=== PATIENT | female | born 1970 | race Caucasian/White ===

== ENCOUNTER 2016-10-21 10:09 | Emergency (ER) | payer MEDICARE, OTHER ==
[2016-10-21 10:16] VITALS: RESP 18; TEMP 97.8; O2SAT 100
[2016-10-21] MEDS ORDERED: Alum-Mag Hydrox-Simethicone Susp (30 mL) PO STA (10:37)
--- NOTE | 2016-10-21 10:41 | C.PDOC ---
History Of Present Illness 10/21/2016 10:30 Celi Olivera is a 46 y/o female whose past medical history includes gastritis, presents to the ED complaining of abdominal discomfort since one day ago. Patient reports she feels a burning sensation and has intolerance to food, which are similar symptoms she experienced with her gastritis. Patient notes being compliant with her medication, but there has been no significant relief. Patient denies chest pain, shortness of breath, headache, fever, chills, cough, nausea, vomiting, diarrhea, changes in bowel habits, dysuria, hematuria, frequency, or other complaints. Time Seen by Provider: 10/21/16 10:20 Chief Complaint (Nursing): Abdominal Pain History Per: Patient History/Exam Limitations: no limitations Onset/Duration Of Symptoms: Days (1 day) Current Symptoms Are (Timing): Still Present Location Of Pain/Discomfort: Diffuse Radiation Of Pain To:: None Quality Of Discomfort: Burning Associated Symptoms: Other (food intolerance). denies: Fever, Vomiting Exacerbating Factors: Food Alleviating Factors: None Abnormal Vaginal Bleeding: No Past Medical History Reviewed: Historical Data, Nursing Documentation, Vital Signs Vital Signs: Last Vital Signs Temp 97.8 F 10/21/16 10:15 Pulse 100 H 10/21/16 10:15 Resp 18 10/21/16 10:15 BP 122/86 10/21/16 10:15 Pulse Ox 100 10/21/16 10:53 - Medical History PMH: Gastritis Surgical History: Family History: States: No Known Family Hx - Social History Hx Tobacco Use: No Hx Alcohol Use: Yes Hx Substance Use: No - Immunization History Hx Tetanus Toxoid Vaccination: No Hx Influenza Vaccination: No Hx Pneumococcal Vaccination: No Review Of Systems Constitutional: Negative for: Fever Cardiovascular: Negative for: Chest Pain Respiratory: Negative for: Shortness of Breath Gastrointestinal: Positive for: Abdominal Pain. Negative for: Vomiting, Diarrhea Genitourinary: Negative for: Dysuria, Frequency Neurological: Negative for: Headache Physical Exam - Physical Exam Additional Physical Exam Comments: Constitutional: No acute distress. Head: Normocephalic. Atraumatic. Eyes: PERRL. ENT: Moist mucous membranes. Neck: Supple. Cardiovascular: Regular rate. Radial pulses 2+ bilaterally. Chest: No tenderness. Respiratory: Clear to auscultation bilaterally. GI: Soft. Nontender. Nondistended. Back: No CVA tenderness. Musculoskeletal: No tenderness or swelling of extremities. Left arm deformity, (baseline). Skin: No rash. Neurologic: Alert, no focal deficit. ED Course And Treatment O2 Sat by Pulse Oximetry: 100 (room air) Pulse Ox Interpretation: Normal Medical Decision Making Medical Decision Makin10/21/2016 Impression: 46 with abdominal pain, similar symptoms to gastritis pmh. Plan: -- Pepcid, Zofran, and Maalox -- Reassess and disposition Patient states she feels much better after treatment. Will discharge, instructed to return to the ED for worsening pain, fever, or change in pain. Disposition - Disposition Disposition: HOME/ ROUTINE Disposition Time: 12:00 Condition: STABLE Prescriptions: Famotidine/Ca Carb/Mag Hydrox [Pepcid Complete Tablet Chew] 1 each PO BID #28 tab.chew Ondansetron ODT [Zofran ODT] 4 mg PO Q8 #12 odt Instructions: Gastritis (ED) Forms: [employer] (Georgian) - Clinical Impression Clinical Impression: Epigastric abdominal pain - Scribe Statement The provider has reviewed the documentation as recorded by the Scribe 10/21/2016 Scribe Attestation: Hetal Pereyra MD Scribe Attestation: All medical record entries made by the Scribe were at my direction and personally dictated by me. I have reviewed the chart and agree that the record accurately reflects my personal performance of the history, physical exam, medical decision making, and the department course for this patient. I have also personally directed, reviewed, and agree with the discharge instructions and disposition.
[2016-10-21] MEDS ORDERED: Alum-Mag Hydrox-Simethicone Susp (30 mL) ONE (10:42)
[2016-10-21 12:02] VITALS: BP 124/72; PULSE 89
== END 2016-10-21 12:03 | disposition home or self-care (01) ==
LOC: C.ER 10:09
DX: R10.13 Epigastric pain (principal)

== ENCOUNTER 2018-02-14 09:53 | Emergency (ER) | payer MEDICARE ==
[2018-02-14 09:57] VITALS: BMI 16.5
[2018-02-14 10:01] VITALS: RESP 18; O2SAT 99
--- NOTE | 2018-02-14 10:59 | C.PDOC ---
History Of Present Illness 47 y/o female presents to the ED complaining of lower back pain for 2 weeks. Pain is mainly localized to the left side. Patient also reports some left-sided pelvic pain. Pain worsens with movement. She denies any abdominal pain, flank pain, vaginal bleeding, vaginal discharge, or urinary complaints. She reports taking Advil for pain. Also denies recent fall or trauma. Time Seen by Provider: 02/14/18 10:13 Chief Complaint (Nursing): Back Pain History Per: Patient History/Exam Limitations: no limitations Onset/Duration Of Symptoms: Days Current Symptoms Are (Timing): Still Present Past Medical History Reviewed: Historical Data, Nursing Documentation, Vital Signs Vital Signs: Last Vital Signs Temp 97.7 F 02/14/18 09:57 Pulse 88 02/14/18 09:57 Resp 18 02/14/18 09:57 BP 127/82 02/14/18 09:57 Pulse Ox 99 02/14/18 09:57 - Medical History PMH: Gastritis, Osteoporosis Surgical History: Family History: States: No Known Family Hx - Social History Hx Tobacco Use: No Hx Alcohol Use: Yes Hx Substance Use: No - Immunization History Hx Tetanus Toxoid Vaccination: No Hx Influenza Vaccination: No Hx Pneumococcal Vaccination: No Review Of Systems Except As Marked, All Systems Reviewed And Found Negative. Constitutional: Negative for: Fever, Chills Gastrointestinal: Negative for: Nausea, Vomiting Genitourinary: Positive for: Pelvic Pain. Negative for: Dysuria, Frequency, Incontinence, Vaginal Discharge, Vaginal Bleeding Musculoskeletal: Positive for: Back Pain Skin: Negative for: Rash Physical Exam - Physical Exam Appears: Non-toxic, No Acute Distress Skin: Normal Color, Warm, Dry Head: Atraumatic, Normacephalic Eye(s): bilateral: Normal Inspection, PERRL, EOMI Oral Mucosa: Moist Neck: Normal ROM Chest: Symmetrical Cardiovascular: Rhythm Regular, No Murmur Respiratory: Normal Breath Sounds, No Accessory Muscle Use Gastrointestinal/Abdominal: Soft, No Tenderness, No Distention Back: No Vertebral Tenderness, Paraspinal Tenderness (Left paralumbar tenderness), No Straight Leg Raising, Other (Pain with flexion; No gross swelling) Extremity: Normal ROM, No Tenderness, Deformity (Left arm partial amputation), No Swelling Pulses: Left Dorsalis Pedis: Normal, Right Dorsalis Pedis: Normal Neurological/Psych: Oriented x3, Normal Speech Gait: Steady ED Course And Treatment O2 Sat by Pulse Oximetry: 99 (RA) Pulse Ox Interpretation: Normal Medical Decision Making Medical Decision Making: Impression: Back pain Plan: --Urinalysis --Urine POC --LS spine x-ray --Pelvic x-ray --Flexeril 5 mg PO --Tylenol 975 mg PO Disposition Counseled Patient/Family Regarding: Studies Performed, Diagnosis, Need For Followup, Rx Given - Disposition Referrals: Alphonse Amaarl MD [Staff Provider] - Disposition: HOME/ ROUTINE Disposition Time: 12:29 Condition: STABLE Additional Instructions: follow up with your doctor within 2 days call to make an appointment take medications as prescribed return to ER if symptoms worsens or progress Prescriptions: Cyclobenzaprine [Cyclobenzaprine HCl] 10 mg PO TID PRN #12 tab PRN Reason: Muscle Spasm Lidocaine 5% [Lidoderm] 1 ea TD DAILY PRN #10 patch PRN Reason: Pain, Moderate (4-7) Naproxen [Naprosyn] 500 mg PO BID PRN #16 tab PRN Reason: Pain, Moderate (4-7) Sulfamethoxazole/Trimethoprim [Bactrim DS 800 mg-160 mg] 1 tab PO BID #14 tab Instructions: Low Back Pain (DC), Urinary Tract Infection, Adult (DC) Forms: [facility] (Al[place]ian), General Discharge Instructions, Work Excuse - Clinical Impression Clinical Impression: Low back pain, UTI (urinary tract infection) - Scribe Statement The provider has reviewed the documentation as recorded by the Andrzej Kay Provider Attestation: All medical record entries made by the Andrzej were at my direction and personally dictated by me. I have reviewed the chart and agree that the record accurately reflects my personal performance of the history, physical exam, medical decision making, and the department course for this patient. I have also personally directed, reviewed, and agree with the discharge instructions and disposition.
--- NOTE | 2018-02-14 11:28 | RAD ---
Date of service: 02/14/2018 PROCEDURE: Radiographs of the Lumbar Spine. HISTORY: back pain COMPARISON: No prior. FINDINGS: BONES: Alignment appears satisfactory. No listhesis. No acute displaced fracture identified. DISC SPACES: Unremarkable. OTHER FINDINGS: None. IMPRESSION: No acute displaced fracture or subluxation identified.
--- NOTE | 2018-02-14 11:37 | RAD ---
Date of service: 02/14/2018 PROCEDURE: Radiographs of the pelvis. HISTORY: pelvic pain COMPARISON: None. FINDINGS: BONES: Pelvic ring is intact. Bone alignment and mineralization are normal. There is no acute displaced fracture bone destruction. JOINTS: The hip joint spaces are preserved. There is mild degenerative osteoarthrosis in the sacroiliac joints. There is mild osteitis pubis. OTHER FINDINGS: None. IMPRESSION: No acute displaced fracture or dislocation. 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
[2018-02-14 12:19] LABS: SQUAMOUS EPITHIAL 20 /hpf (0-5); URINE BACTERIA MANY (<OCC); URINE BILIRUBIN NEGATIVE (NEGATIVE); URINE BLOOD 1+ (NEGATIVE); URINE CLARITY Hazy (Clear); URINE COLOR Yellow (YELLOW); URINE GLUCOSE (UA) 1+ mg/dL (Normal); URINE LEUKOCYTE ESTERASE 1+ Leu/uL (Negative); URINE PROTEIN 1+ mg/dL (NEGATIVE); URINE UROBILINOGEN NORMAL mg/dL (0.2-1.0); WBC CLUMPS FEW /hpf
[2018-02-14] MEDS ORDERED: Tmp-Smz 800 mg-160 mg DS Tab PO STA (12:27)
[2018-02-14 12:33] VITALS: BP 109/75; PULSE 98; TEMP 98.2
[2018-02-14] MEDS ORDERED: Tmp-Smz 800 mg-160 mg DS Tab ONE (12:33)
== END 2018-02-14 13:09 | disposition home or self-care (01) ==
LOC: C.ER 09:53
DX: N39.0 Urinary tract infection, site not specified (principal); M54.5 Low back pain